=== PATIENT | male | born 1960 | race Caucasian/White ===

== ENCOUNTER → 2024-10-03 | Day surgery (SDC) | payer BC ==
[2024-10-03] VITALS (9 sets, daily range): BP systolic 130–150; BP diastolic 70–83; PULSE 68–86; RESP 12–22; O2SAT 93–99
[~2024-10-03] VITALS: Ht 172.7 cm; Wt 120.2 kg
[~2024-10-03] MED LIST: FENTANYL CITRATE/PF 50MCG/ML 2ML VIAL IV NR; FENTANYL CITRATE/PF 50MCG/ML 2ML VIAL ONE; HYDROCODONE/ACETAMINOPHEN 5/325MG TABLET PO PRN; LIDOCAINE HCL 1% 10 MG/ML 10ML VIAL ONE; NALOXONE HCL 0.4MG/ML VIAL IV PRN; SODIUM BICARBONATE 4% 2.4MEQ/5ML VIAL IV ONE
[2024-10-03] MEDS: FENTANYL CITRATE/PF 50MCG/ML 2ML VIAL IV ONE (10:30)
[2024-10-03 14:37] LABS: HEMATOCRIT 51.6 % (42.0-52.0); HEMOGLOBIN 17.4 g/dL (14.0-18.0)
== END | disposition home or self-care (01) ==
LOC: RAD 09:16
PROVIDERS: ATTEND Internal Medicine
DX: R80.9 Proteinuria, unspecified (principal); I10 Essential (primary) hypertension; Z79.899 Other long term (current) drug therapy; Z88.0 Allergy status to penicillin
CPT/HCPCS: 50200; 85014; 85018; 36415; 76942; 88348; 88305; 88346; J3010; J2003; J3490; 99152; 99153; G0500

== ENCOUNTER → 2025-01-21 | Outpatient (CLI) | payer BC | END | disposition home or self-care (01) | LOC: PF 09:27 | PROVIDERS: ATTEND Internal Medicine Critical Care Medicine | DX: R06.02 Shortness of breath (principal); Z20.822 Contact with and (suspected) exposure to COVID-19 | CPT/HCPCS: 87426; 94060; 94727; 94729 ==